=== PATIENT | male | born 1965 | race African-American/Black ===

== ENCOUNTER 2017-06-11 08:12 | Emergency (ER) | payer MEDICAID, OTHER ==
[~2017-06-11] VITALS: Ht 182.9 cm; Wt 113.4 kg
[2017-06-11 08:35] VITALS: BP 125/74
[2017-06-11] MEDS ORDERED: KETOROLAC TROMETH 60MG/2ML VIAL IM ONE ×2 (09:00→09:15)
== END 2017-06-11 10:10 | disposition home or self-care (01) ==
LOC: ER 08:12
DX: M75.02 Adhesive capsulitis of left shoulder (principal)
CPT/HCPCS: 73030; 96372; 99284; J1885